=== PATIENT | male | born 1955 | race Native Hawaiian/Other Pacific Islander ===

== ENCOUNTER 2016-10-30 07:21 | Outpatient (CLI) | payer OTHER | END 2016-10-30 07:24 | disposition short-term general hospital (02) | LOC: AMB 07:21 | DX: R10.84 Generalized abdominal pain (principal) | CPT/HCPCS: A0425; A0429 ==

== ENCOUNTER 2016-10-30 07:28 | Emergency (ER) | payer OTHER ==
[~2016-10-30] VITALS: Ht 172.7 cm; Wt 54.4 kg
[2016-10-30 07:58] LABS: PLATELET COUNT 330 K/uL (142-355)
[2016-10-30 08:15] LABS: POTASSIUM 4.1 mmol/L (3.6-5.2)
[2016-10-30 10:02] VITALS: TEMP 97.4
[2016-10-30 10:30] VITALS: BP 124/88
== END 2016-10-30 10:30 | disposition home or self-care (01) ==
LOC: ED 07:28
PROVIDERS: Family Medicine
DX: K80.80 Other cholelithiasis without obstruction (principal); B96.81 Helicobacter pylori [H. pylori] as the cause of diseases classified elsewhere
CPT/HCPCS: 80053; 85027; 86318; 96361; 96374; 96375; 99284; J1885; J2405

== ENCOUNTER 2016-11-03 19:48 | Emergency (ER) | payer OTHER ==
[~2016-11-03] VITALS: Ht 172.7 cm; Wt 54.9 kg
[2016-11-03 20:10] VITALS: BP 169/97; TEMP 97.7
== END 2016-11-03 22:26 | disposition home or self-care (01) ==
LOC: ED 19:48
DX: K59.09 Other constipation (principal); R10.84 Generalized abdominal pain
CPT/HCPCS: 96372; 99282; J2175

== ENCOUNTER 2017-02-02 08:28 | Inpatient (IN) | payer OTHER ==
[~2017-02-02] VITALS: Ht 172.7 cm; Wt 54.5 kg
[2017-02-02 08:35] VITALS: BP 176/92; TEMP 97.8
[2017-02-02] MEDS ORDERED: ASTAGRAF XL1 MG PO (08:48)
[2017-02-02] MEDS ORDERED: MYCOPHENOLATE250 MG PO (08:48)
[2017-02-02] MEDS ORDERED: REMERON SOLTAB15 MG PO (08:48)
[2017-02-02] MEDS ORDERED: [UNRECOGNIZED DRUG - CODE] PO (08:49)
[2017-02-02] MEDS ORDERED: PRED20TA27 PO (08:50)
[2017-02-02] MEDS ORDERED: METO50TA27 PO (08:52)
[2017-02-02] MEDS ORDERED: BINOSTO70 MG OR (08:53)
[2017-02-02] MEDS ORDERED: MAG OXIDE420 MG OR (08:53)
[2017-02-02] MEDS ORDERED: LATANOPROST0.005 % OP (08:54)
[2017-02-02] MEDS ORDERED: CALCIUM 500+D OR (08:54)
[2017-02-02] MEDS ORDERED: BISACODYL5 M1 PO (08:55)
[2017-02-02] MEDS ORDERED: SILD100T OR (08:59)
[2017-02-02] MEDS ORDERED: OMEPRAZOLE20 M1 OR (09:01)
[2017-02-02] MEDS ORDERED: ONDA4TAB3 PO (09:02)
[2017-02-02] MEDS ORDERED: KETOROLAC10 MG OR (09:03)
[2017-02-02 09:21] LABS: PLATELET COUNT 476 K/uL (142-355)
[2017-02-02 09:30] LABS: POTASSIUM 4.4 mmol/L (3.6-5.2)
--- NOTE | 2017-02-02 13:30 | NUR ---
PT TO ROOM 1121 FROM ER. ORIENTED PT TO ROOM AND CONTROLS. PT VERBALIZES UNDERSTANDING. ASSESSMENT COMPLETE. NAD NOTED. PT INSTRUCTED ON NPO STATUS. IV INTANT TO L FA WITH NS INFUSING AT 50ML/HR FROM ER.
[2017-02-02 14:18] VITALS: BP 155/60; TEMP 98.4; Ht 172.7 cm; Wt 54.5 kg
[2017-02-02 16:06] VITALS: BP 162/89; TEMP 98.3
[2017-02-02 20:00] VITALS: BP 157/84; TEMP 98.7
[2017-02-03] VITALS: BP 168/99; TEMP 97.6
[2017-02-03 04:00] VITALS: BP 153/72; TEMP 98.9
[2017-02-03 05:29] LABS: PLATELET COUNT 336 K/uL (142-355)
[2017-02-03 05:39] LABS: POTASSIUM 4.7 mmol/L (3.6-5.2)
[2017-02-03 08:00] VITALS: BP 166/82; TEMP 97.8
[2017-02-03 12:00] VITALS: BP 154/93; TEMP 98.6
[2017-02-03] MEDS ORDERED: CALCIUM + D PO (13:15)
[2017-02-03] MEDS ORDERED: LOPID PO (13:21)
[2017-02-03 16:00] VITALS: BP 159/84; TEMP 97.8
--- NOTE | 2017-02-03 19:15 | NUR ---
Received pt resting in bed. Pt alert and oriented. No distress noted. Complains of pain in abd. Assessment completed. Bed in lowest position. Call light within reach. Will continue to monitor.
[2017-02-03 21:00] VITALS: BP 142/84; TEMP 98
[2017-02-04] VITALS: BP 150/88; TEMP 98.5
[2017-02-04 04:00] VITALS: BP 164/95; TEMP 98.4
--- NOTE | 2017-02-04 05:02 | NUR ---
Pt resting in bed. Denies pain at this time. No distress noted. No change in assessment. Will continue to monitor.
[2017-02-04 05:51] LABS: PLATELET COUNT 325 K/uL (142-355)
[2017-02-04 06:15] LABS: POTASSIUM 4.8 mmol/L (3.6-5.2)
[2017-02-04 08:00] VITALS: BP 156/95; TEMP 98.5
[2017-02-04 12:00] VITALS: BP 158/94; TEMP 98.5
--- NOTE | 2017-02-04 13:43 | NUR ---
RESTING IN BED WATCHING TV NO COMPLAINTS. DR MCCANN VISITED EARLIER.
[2017-02-04 15:23] VITALS: BP 154/88; TEMP 97.8
--- NOTE | 2017-02-04 19:00 | NUR ---
RESTING IN BED WATCHING TV NO COMPLAINTS VOICED. IV FLUIDS INFUSING WITHOUT DIFFICULTY.
[2017-02-04 20:00] VITALS: BP 180/96; TEMP 98.4
--- NOTE | 2017-02-04 23:50 | NUR ---
CALLED TO PATIENTS ROOM. HE COMPLAINS OF DIZZINESS AND FEELING LIGHT HEADED. HE STATES THAT IT FEELS LIKE HIS BLOOD SUGAR HAS DROPPED. GLUCOMETER READING IS 56. PATIENT GIVEN GINGERALE AND JELLO WILL REASSESS.
[2017-02-05] VITALS: BP 169/98; TEMP 97.8
[2017-02-05 04:00] VITALS: BP 172/90; TEMP 98.3
[2017-02-05 05:10] LABS: PLATELET COUNT 290 K/uL (142-355)
[2017-02-05 05:35] LABS: POTASSIUM 4.3 mmol/L (3.6-5.2)
[2017-02-05 08:00] VITALS: BP 181/95; TEMP 98
--- NOTE | 2017-02-05 08:40 | NUR ---
IV 20 G INSERTED R W X 2 STICKS,OLD IV D/C'D LEAKING AT SIGHT.
--- NOTE | 2017-02-05 10:00 | NUR ---
PT IN SHOWER.DENIES PAIN.
[2017-02-05 12:12] VITALS: BP 171/98; TEMP 98.8
--- NOTE | 2017-02-05 12:30 | NUR ---
PT SITTING UP FEEDING SELF LUCH. DENIES PAIN &NAUSEA. C/O A LIITLE DIARRHEA, DR MCCANN AWARE.
--- NOTE | 2017-02-05 15:30 | NUR ---
PT WATCHING TV DENIES DISTRESS.
--- NOTE | 2017-02-05 17:25 | NUR ---
D/C INSTRUCTIONS ,PT VERBALIZED UNDERSTANDING. IV D/C'D CANNULA INTACT , SITE SECURED. HOME MEDS RETURNED TO PT.
--- NOTE | 2017-02-05 17:55 | NUR ---
PT'S RIDE HERE,PT D/C'D STABLE AMBULATORY TO PRIVATE AUTO ESCORTED BY MELINDA REYNA.PT TOOK PERSONAL ITEMS & HOME MEDS HOME WITH HIM.
== END 2017-02-05 17:52 | disposition home or self-care (01) | DRG 392 ==
LOC: ED 08:28 → MED/SURG 12:01
PROVIDERS: ADMIT Emergency Medicine
DX: A08.39 Other viral enteritis (principal); N18.4 Chronic kidney disease, stage 4 (severe); R39.2 Extrarenal uremia; I12.9 Hypertensive chronic kidney disease with stage 1 through stage 4 chronic kidney disease, or unspecified chronic kidney disease; E11.9 Type 2 diabetes mellitus without complications; J43.8 Other emphysema; A04.8 Other specified bacterial intestinal infections
CPT/HCPCS: 36415; 80053; 80307; 81000; 82150; 82272; 82570; 82948; 83605; 83690; 83735; 84300; 84540; 85027; 86318; 87040; 87045; 87077; 87185; 87205; 87328; 87329; 87493; 87798; 87899; 96361; 96365; 96366; 96372; 96374; 96375; 96376; 99284; G0479; J1644; J1885; J2175; J2405; J3475

== ENCOUNTER 2017-02-15 01:03 | Outpatient (CLI) | payer OTHER ==
[~2017-02-15 01:03] MED LIST: ASTAGRAF XL1 MG PO; BINOSTO70 MG OR; BISACODYL5 M1 PO; CALCIUM + D PO; CALCIUM 500+D OR; KETOROLAC10 MG OR; LATANOPROST0.005 % OP; LOPID PO; MAG OXIDE420 MG OR; METO50TA27 PO; MYCOPHENOLATE250 MG PO; OMEPRAZOLE20 M1 OR; ONDA4TAB3 PO; PRED20TA27 PO; REMERON SOLTAB15 MG PO; SILD100T OR; [UNRECOGNIZED DRUG - CODE] PO
[2017-02-15] MEDS ORDERED: LOPRESSOR100 MG PO (16:45)
[2017-02-15] MEDS ORDERED: AMOXICILLIN250 M2 PO (16:50)
[2017-02-15] MEDS ORDERED: PROTONIX20 MG PO (16:52)
[2017-02-15] MEDS ORDERED: CLAR500T PO (16:54)
[2017-02-15] MEDS ORDERED: ALEN70TA19 PO (16:57)
[2017-02-15] MEDS ORDERED: ASPIR-8181 MG PO (16:58)
[2017-02-15] MEDS ORDERED: CITA20TA2 PO (16:59)
[2017-02-15] MEDS ORDERED: DOK100 MG OR (17:18)
== END 2017-02-15 01:06 | disposition short-term general hospital (02) ==
LOC: AMB 01:03
DX: R10.84 Generalized abdominal pain (principal); R11.2 Nausea with vomiting, unspecified
CPT/HCPCS: A0425; A0429

== ENCOUNTER 2017-02-15 01:10 | Inpatient (IN) | payer OTHER ==
[~2017-02-15] VITALS: Ht 172.7 cm; Wt 54.9 kg
[2017-02-15] VITALS (15 sets, daily range): BP systolic 115–178; BP diastolic 65–93; TEMP 98.1–98.6; Ht 172.7 cm; Wt 54.9 kg
[2017-02-15 02:07] LABS: PLATELET COUNT 466 K/uL (142-355)
[2017-02-15 02:13] LABS: POTASSIUM 4.9 mmol/L (3.6-5.2)
--- NOTE | 2017-02-15 08:08 | NUR ---
Pt. ADMITTED TO ROOM [address] MCCANN. C/O ABD PAIN SINCE OCT WITH NAUSEA AND VOMITING. Pt. IS THIN AND FRAIL.
--- NOTE | 2017-02-15 10:56 | NUR ---
RECEIVE ORDER TO TRANSFER TO PCU DUE TO ABNORMAL LAB ABG.
--- NOTE | 2017-02-15 14:10 | NUR ---
RECEIVED PT FROM MED SURG AND RECEIVED REPORT FROM ANDRES KIRK RN. ORIENTED PT TO ROOM SURROUNDINGS. PLACED PT ON MONITORS. WILL CONTINUE TO MONITOR.
--- NOTE | 2017-02-15 14:28 | NUR ---
Pt. TRANSFERRED TO ROOM [address] MCCANN.
--- NOTE | 2017-02-15 16:35 | NUR ---
BLOOD CULTURES X 2 DRAWN. IV TO L AC RED ABOVE INSERTION SITE. IV D/C'D WITH TIP INTACT PRESSURE DRESSING APPLIED. IV STARTED IN R FA WITH A 22G X 1 ATTEMPT. IVF INFUSING WITHOUT ANY PROBLEMS.
[2017-02-15] MEDS ORDERED: LOPRESSOR100 MG PO (16:45)
[2017-02-15] MEDS ORDERED: AMOXICILLIN250 M2 PO (16:50)
[2017-02-15] MEDS ORDERED: PROTONIX20 MG PO (16:52)
--- NOTE | 2017-02-15 16:52 | NUR ---
16F PORTILLO CATH INSERTED VIA APPEALS BOARD REFEREE. CONCENTRATED URINE NOTED. SPECIMEN COLLECTED AND SENT TO THE LAB.
[2017-02-15] MEDS ORDERED: CLAR500T PO (16:54)
[2017-02-15] MEDS ORDERED: ALEN70TA19 PO (16:57)
[2017-02-15] MEDS ORDERED: ASPIR-8181 MG PO (16:58)
[2017-02-15] MEDS ORDERED: CITA20TA2 PO (16:59)
[2017-02-15] MEDS ORDERED: DOK100 MG OR (17:18)
--- NOTE | 2017-02-15 18:38 | NUR ---
PT HAD A LOOSE BM. CHANGED PT.
--- NOTE | 2017-02-15 20:00 | NUR ---
PM ASSESSMENT COMPLETED. PT IS BILATERAL LUNG TRANSPLANT. PT IN WITH N/V AND DEHYDRATION. PT WITH NO N/V AT PRESENT TIME. PT WITH NO DIARRHEA AT THIS TIME. NS INFUSING AT 125 ML/HR VIA PUMP. PT WITH PORTILLO CATHETAR WITH YELLOW URINE DRAINING. CM WITH SINUS TACH. REVIEWED PT'S MEDICATION WITH HIM.
--- NOTE | 2017-02-15 23:47 | NUR ---
COMPLAINTS OF NAUSEA AND HEADACHE. MEDICATED WITH ZOFRAN 4 MG IVSP AND HYDROCODONE WAS ADMINISTERED.
[2017-02-16] VITALS (20 sets, daily range): BP systolic 107–157; BP diastolic 52–95; TEMP 97.5–98.1
--- NOTE | 2017-02-16 02:19 | NUR ---
PT WAKE WITHOUT COMPLAINTS. BRUSHING HIS HAIR. CM WITH SINUS TACH.
--- NOTE | 2017-02-16 04:48 | NUR ---
PT HAS BEEN UP WATCHING TELEVISION. NO COMPLAINTS.
[2017-02-16 06:27] LABS: PLATELET COUNT 312 K/uL (142-355)
[2017-02-16 06:42] LABS: POTASSIUM 4.4 mmol/L (3.6-5.2)
--- NOTE | 2017-02-16 07:00 | NUR ---
REPORT FROM PM STAFF. PT RESTING IN LF WATCHING TV.
--- NOTE | 2017-02-16 08:20 | NUR ---
LABS CALLED TO CYRUS MENDOZA RN/DARREL MCCANN.
--- NOTE | 2017-02-16 09:03 | NUR ---
RENAL CONSULT PER CYRUS MENDOZA RN, AIDA DE LA ROSA RN,DIALYSIS NURSE AWARE. DR MCCANN TO SPEAK TO PT'S RENAL MD PER CYRUS SAMPSON RN.
--- NOTE | 2017-02-16 10:08 | NUR ---
PT C/O ABD PAIN LUQ & EPIGASTRIC. MEDICATED WITH HYDROCODONE PER CATALINA PULIDO. REPORTED TO DR MCCANN.
--- NOTE | 2017-02-16 10:53 | NUR ---
PT WITH C/O NAUSEA,MEDICATED WITH ZOFRAN 4MG SIVP PER ORDER.
--- NOTE | 2017-02-16 15:55 | NUR ---
VERIFIED OK TO ADMINISTER ZOSYN PER DR'S ORDER R/T RENAL FUNCTION.
--- NOTE | 2017-02-16 16:00 | NUR ---
PT USED BEDPAN,PERICARE PER SELF,UP TO STAND AT BS,LINEN CHANGE.
--- NOTE | 2017-02-16 16:30 | NUR ---
PT WITH HISTORY OF DNR LAST VISIT,02/02/17. PT STILL WANTS A DNR, COPY OF DNR OBTAINED FROM [facility] & PT SIGNED AGAIN WITNESSED PER MYSELF.
--- NOTE | 2017-02-16 18:00 | NUR ---
PT STATES'I FEEL BETTER',PT DRINKING CL LIQUID DIET.
--- NOTE | 2017-02-16 19:20 | NUR ---
Received pt resting in bed watching tv. No distress noted. VSS per monitor. Denies pain at this time. Alert and oriented. Lungs clear to asucultation. HOB elevated. Assessment completed. Bed in lowest position. Call light within reach. Will continue to monitor.
--- NOTE | 2017-02-16 23:28 | NUR ---
Pt resting with no complaints at this time. No change in assessment. VSS per monitor. Will continue to monitor.
[2017-02-17] VITALS (24 sets, daily range): BP systolic 113–180; BP diastolic 64–102; TEMP 97.6–98.3
--- NOTE | 2017-02-17 03:30 | NUR ---
No distress noted. Pt denies pain at this time. VSS per monitor. Will continue to monitor.
[2017-02-17 06:18] LABS: POTASSIUM 3.9 mmol/L (3.6-5.2)
[2017-02-17 06:43] LABS: PLATELET COUNT 309 K/uL (142-355)
--- NOTE | 2017-02-17 07:00 | NUR ---
REPORT FROM PM STAFF, PT IN LF WITH EYES CLOSED. NO C/O AT THIS TIME.
--- NOTE | 2017-02-17 08:30 | NUR ---
CYRUS MENDOZA RN/DARREL IN TO SEE PT,PT C/O 'ABD BURNING',NOT PAIN IN EPIGASTRIC AREA. DR OLIVEROS.
--- NOTE | 2017-02-17 11:30 | NUR ---
DR BULLOCK IN TO SEE PT.
--- NOTE | 2017-02-17 12:30 | NUR ---
PT FED SELF CL LIQUID DIET. APPETITE HAS IMPROVED. NO NAUSEA.
--- NOTE | 2017-02-17 14:45 | NUR ---
PT RESTING WITH EYES CLOSED.
--- NOTE | 2017-02-17 16:00 | NUR ---
PT UP TO BSC,LARGE LOOSE YELLOW BROWN BM,PERICARE PER SELF,BACK TO BED ON R SIDE ASLEEP.
--- NOTE | 2017-02-17 18:14 | NUR ---
PT UP IN BED FEEDING SELF DINNER.HAS NAPPED MUCH OF THE AFTERNOON. NO NAUSEA. URINARY OUTPUT HAS IMPROVED.
--- NOTE | 2017-02-17 20:37 | NUR ---
PT SITTING UP IN BED WATCHING TV. DENIES PAIN OR NAUSEA.
--- NOTE | 2017-02-17 20:51 | NUR ---
Assessment completed. No distress noted at this time. Denies pain. VSS per monitor. Will continue to monnitor.
--- NOTE | 2017-02-17 23:14 | NUR ---
No change in assessment. Pt resting with eyes closed. VSS per monitor. No distress noted. WIll continue to monitor.
[2017-02-18] VITALS (13 sets, daily range): BP systolic 142–174; BP diastolic 71–100; TEMP 98.1–98.5
--- NOTE | 2017-02-18 04:01 | NUR ---
PT resting with eyes closed. No distress noted. No change in assessment. VSS per monitor. Will continue to monitor.
[2017-02-18 06:28] LABS: POTASSIUM 3.7 mmol/L (3.6-5.2)
--- NOTE | 2017-02-18 08:07 | NUR ---
AM ASSESSEMENT DONE PT RESTING IN BED WATCHING TV STATES "FEELING A LITTLE BETTER" "BELLY STILL SORE, NOT BAD" PT ON CLEAR LIQUIDS. IV FLUIDS INFUSING WITHOUT DIFFICULTY.
--- NOTE | 2017-02-18 10:33 | NUR ---
RESTING QUIETLY THIS AM. EYES CLOSED RESP EVEN UNLABORED. RECIEVED AM MEDS DENISE CLEAR LIQUIDS WELL.
[2017-02-18 10:37] LABS: PLATELET COUNT 271 K/uL (142-355)
--- NOTE | 2017-02-18 11:40 | NUR ---
RECIEVED NEW ORDERS, DR MORRIS HERE. RECIEVED ORDER TO MOVE TO MED SURG FLOOR. PT ASSIST TO MED SURG FLOOR VIA W/C ORIENTED TO ROOM. REPORT TO DOMI STARK RN
--- NOTE | 2017-02-18 11:45 | NUR ---
HOME MEDS GIVEN TO DOMI FOR HOME MED LOCK UP. PT TO CALL FAMILY MEMBER TO BRING HIS MEDS FROM HOME. TRANSPLANT MED
--- NOTE | 2017-02-18 12:15 | NUR ---
REPORT RECEIVED FROM DAVEY ORTIZ RN. PATIENT TRANSFERRED FROM PCU TO ROOM 1108. ORIENTED TO ROOM AND CALL SYSTEM. PATIENT HAS NO COMPLAINTS AT THIS TIME. INSTRUCTED TO CALL FOR ASSISTANCE IF NEEDED.
--- NOTE | 2017-02-18 15:10 | NUR ---
PORTILLO CATHETER REMOVED PER DR. MORRIS'S ORDERS. PATIENT TOLERATED WELL. PATIENT UP TO SHOWER WITH ASSISTANCE.
[2017-02-19] VITALS: BP 154/78; TEMP 98.4
[2017-02-19 04:00] VITALS: BP 144/88; TEMP 98.6
[2017-02-19 04:42] LABS: PLATELET COUNT 284 K/uL (142-355)
[2017-02-19 04:53] LABS: POTASSIUM 3.7 mmol/L (3.6-5.2)
[2017-02-19 08:00] VITALS: BP 130/84; TEMP 98.8
[2017-02-19 12:00] VITALS: BP 149/90
[2017-02-19 20:25] VITALS: BP 170/86; TEMP 97.3
[2017-02-20 00:53] VITALS: BP 165/92; TEMP 98.3
[2017-02-20 05:41] LABS: POTASSIUM 3.7 mmol/L (3.6-5.2)
[2017-02-20 06:10] VITALS: BP 171/81; TEMP 98.1
[2017-02-20 06:12] LABS: PLATELET COUNT 269 K/uL (142-355)
[2017-02-20 08:00] VITALS: BP 155/58; TEMP 97.9
[2017-02-20 12:00] VITALS: BP 162/93; TEMP 97.4
[2017-02-20 16:00] VITALS: BP 133/94; TEMP 97.4
[2017-02-20 20:00] VITALS: BP 187/85; TEMP 98.1
[2017-02-21] VITALS: BP 159/86; TEMP 98
[2017-02-21 04:00] VITALS: BP 159/78; TEMP 98.2
[2017-02-21 05:35] LABS: PLATELET COUNT 252 K/uL (142-355)
[2017-02-21 05:57] LABS: POTASSIUM 3.7 mmol/L (3.6-5.2)
[2017-02-21 08:00] VITALS: BP 138/87; TEMP 98
[2017-02-21 11:55] VITALS: BP 162/88; TEMP 97.9
[2017-02-21 16:00] VITALS: BP 150/83; TEMP 98.2
[2017-02-21 20:00] VITALS: BP 155/83; TEMP 98
[2017-02-22] VITALS: BP 140/80; TEMP 98.1
[2017-02-22 04:00] VITALS: BP 148/88; TEMP 98.3
[2017-02-22 04:26] LABS: PLATELET COUNT 250 K/uL (142-355)
[2017-02-22 04:49] LABS: POTASSIUM 3.2 mmol/L (3.6-5.2)
[2017-02-22 08:00] VITALS: BP 148/93; TEMP 97.8
[2017-02-22 12:00] VITALS: BP 170/87; TEMP 98
[2017-02-22 16:00] VITALS: BP 155/79; TEMP 98.5
--- NOTE | 2017-02-22 18:00 | NUR ---
IV D/C'd. NO REDNESS OR EDEMA OBSERVED. DISCHARGE INSTRUCTIONS SIGNED AND GIVEN. Pt. EXIT OUT OF FRONT ENTRANCE.
== END 2017-02-22 18:00 | disposition home or self-care (01) | DRG 872 ==
LOC: ED 01:10 → MED/SURG 06:30 → ICU 14:13 → MED/SURG 02-18 11:40
PROVIDERS: Emergency Medicine; Internal Medicine; ADMIT Family Medicine
PROC: 05HM33Z Insertion of Infusion Device into Right Internal Jugular Vein, Percutaneous Approach (ICD-10-PCS; principal; 2017-02-17)
PROC: B543ZZA Ultrasonography of Right Jugular Veins, Guidance (ICD-10-PCS; 2017-02-17)
DX: A41.89 Other specified sepsis (principal); N17.8 Other acute kidney failure; I12.0 Hypertensive chronic kidney disease with stage 5 chronic kidney disease or end stage renal disease; N18.5 Chronic kidney disease, stage 5; A04.8 Other specified bacterial intestinal infections; E87.4 Mixed disorder of acid-base balance; K80.10 Calculus of gallbladder with chronic cholecystitis without obstruction; E86.0 Dehydration; R11.2 Nausea with vomiting, unspecified; R39.2 Extrarenal uremia
CPT/HCPCS: 36415; 36600; 51702; 80053; 81000; 82150; 82550; 82805; 83605; 83690; 83735; 85027; 85651; 86318; 87040; 96365; 96368; 96372; 99284; J1644; J2175; J2405; J2543; J2550